=== PATIENT | male | born 1955 | race African-American/Black ===

== ENCOUNTER 2019-04-30 10:11 | Inpatient (IN) | payer OTHER ==
[2019-04-30 10:58] LABS: Hemoglobin 10.5 g/dL (14.0-18.0); Mean Corpuscular HGB CONC 32.5 g/dL (32.0-36.0); White Blood Cell (WBC) Count 16.3 thou/uL (4.8-10.8)
[2019-04-30 11:14] LABS: Anion Gap 16 mmol/L (10-20); BUN (Urea Nitrogen) 16 mg/dL (8.4-25.7); Band 12 % (5-11); Calc. Creatinine Clearance 0 mL/min (70-130); Calcium 8.5 mg/dL (7.8-10.44); Carbon Dioxide 20 mmol/L (23-31); Chloride 104 mmol/L (98-107); Estimated GFR-MDRD 43; Glucose 101 mg/dL (80-115); Lymphocytes 11 % (21-51); MDiff Complete? YES; Mean Platelet Volume 8.9 fL (7.4-10.4); Monocytes 3 % (0-10); Neutrophil 74 % (42-75); Platelet Count 95 thou/uL (130-400); Platelet Morphology Comment Appears Decreased; Potassium 4.3 mmol/L (3.5-5.1); RBC Distribution Width 12.3 % (11.5-14.5); Reflex for Review?? YES; Rouleaux Formation MARKED = >16 cells (100X) (None Seen); Sodium 136 mmol/L (136-145); Vacuoles SLIGHT
[2019-04-30] MEDS ORDERED: Dexamethasone 10 MG/ML VIAL ONE (11:28)
[2019-04-30] MEDS ORDERED: Sulfameth/Trimethoprim DS 800-160mg TAB ONE (11:28)
[2019-04-30] MEDS ORDERED: Acetaminophen 500 MG TAB ONE (11:28)
--- NOTE | 2019-04-30 12:31 | CT ---
CT OF FACIAL BONES WITH IV CONTRAST: 04/30/19 HISTORY: Left periorbital cellulitis. FINDINGS: There is soft tissue swelling in the left periorbital region consistent with cellulitis. No loculated fluid collection is seen in the soft tissues to suggest abscess formation. No adjacent bony destruct ion is seen to suggest osteomyelitis. There is mucosa disease in the paranasal sinuses. No retrobulbar mass or proptosis is seen. IMPRESSION: Left periorbital cellulitis without evidence of osteomyelitis or soft tissue abscess. POS: NICOLE
[2019-04-30] MEDS ORDERED: Piperacillin/Tazobactam 3.375 GM VIAL ONE (12:48)
[2019-04-30] MEDS ORDERED: Acetaminophen 325 MG TAB PO PRN (14:27)
[2019-04-30] MEDS ORDERED: HYDROcodone/Acetaminophen 5/325 mg Tablet PO PRN (14:27)
[2019-04-30] MEDS ORDERED: Bisacodyl 5 MG TAB PO PRN (14:27)
[2019-04-30] MEDS ORDERED: Senokot S 8.6-50 MG TAB PO PRN (14:27)
[2019-04-30] MEDS ORDERED: hydrALAZINE 20 MG/ML VIAL SLOW IVP PRN (14:32)
[2019-04-30] MEDS ORDERED: ISOVUE-370 76%-LOCM 1 ML ONE (15:09)
[2019-04-30 18:12] VITALS: BMI 26.9
[2019-04-30] MEDS: 1/2 NS w/KCL 20 mEq 1,000 ML IV SCH (19:55)
[2019-04-30] MEDS: Piperacillin/Tazobactam 3.375 GM in Sodium Chloride 0.9% 100 ML IVPB SCH (19:58)
[2019-04-30] MEDS: Terazosin HCl 5 MG CAP PO SCH (20:03)
[2019-05-01] MEDS: Piperacillin/Tazobactam 3.375 GM in Sodium Chloride 0.9% 100 ML IVPB SCH ×4 (01:40→20:37)
[2019-05-01 05:45] LABS: #Lymphocytes 1.4 thou/uL (1.20-3.40); #Monocytes 0.5 thou/uL (0.11-0.59); #Neutrophils 14.7 thou/uL (1.40-6.50); %Lymphocytes 8.3 % (21.0-51.0); %Monocytes 3.1 % (0.0-10.0); %Neutrophils 88.5 % (42.0-75.0); Hemoglobin 9.1 g/dL (14.0-18.0); Mean Corpuscular HGB CONC 33.4 g/dL (32.0-36.0); Mean Corpuscular Hemoglobin 34.8 pg (27.0-31.0); Mean Platelet Volume 9.5 fL (7.4-10.4); Platelet Count 71 thou/uL (130-400); RBC Distribution Width 12.3 % (11.5-14.5); White Blood Cell (WBC) Count 16.5 thou/uL (4.8-10.8)
[2019-05-01 06:04] LABS: Anion Gap 13 mmol/L (10-20); BUN (Urea Nitrogen) 26 mg/dL (8.4-25.7); Calc. Creatinine Clearance 59 mL/min (70-130); Carbon Dioxide 20 mmol/L (23-31); Chloride 107 mmol/L (98-107); Estimated GFR-MDRD 57; Glucose 105 mg/dL (80-115); Potassium 4.3 mmol/L (3.5-5.1); Sodium 136 mmol/L (136-145)
[2019-05-01] MEDS: 1/2 NS w/KCL 20 mEq 1,000 ML IV SCH ×2 (07:31→12:34)
--- NOTE | 2019-05-01 08:27 | HP ---
CHIEF COMPLAINT: Left eye pain and swelling. HISTORY OF PRESENT ILLNESS: Mr. Fritz is a 63-year-old male with past medical history of hepatitis C and BPH, who presents with acute onset of left eye pain and swelling. The patient is incarcerated and is accompanied by guards at bedside. The patient states that yesterday evening he started having worsening eye pain and swelling, he states that he did notice some white creamy discharge from the middle part of his eye with discomfort. He did try eyedrops to help flush out the eye. However, this did not help. When the patient woke up this morning, left eye was severely swollen and painful. The patient presented to hospital emergency department for further evaluation. The patient had CT scan of the facial bones , please see full report for details. There is left periorbital cellulitis with no evidence of osteomyelitis or soft tissue abscess. The patient was found to be septic with leukocytosis of 16k and tachycardia. The patient denies any physical altercations and states that he did not have any trauma to the area. The patient denies any new lotions or soaps. The patient denies any other new activity to the left eye that would explain these symptoms. PAST MEDICAL HISTORY: 1. Hepatitis C. 2. BPH. HOME MEDICATIONS: 1. Terazosin 15 mg one tab p.o. q.h.s. 2. Lactulose 20mg 3 times per day. REVIEW OF SYSTEMS: A 10-point review of systems was completed and negative aside from history of present illness. ALLERGIES: NO KNOWN DRUG ALLERGIES. SOCIAL HISTORY: The patient denies tobacco use, no alcohol, no illicit drugs, the patient is single/not . He has seven children. The patient is incarcerated since 2005. The patient states that he desires to be a full categorization status. PHYSICAL EXAMINATION: VITAL SIGNS: Temperature 98.6, heart rate 102, respirations 15, and O2 saturation 98% on room air. GENERAL: The patient is alert and oriented, cooperative with history and physical, in no apparent distress. HEENT: The left eye has obvious swelling to the point where the eye is completely closed, there are erythematous changes of the skin and warmth coming from the skin. There is medial tearing of the eye; however, there is no purulent discharge. Extraocular muscles are intact, and vision to the left eye is intact to threat without deficits in lateral gaze. The patient is able to cover the right eye and independently tell me accurately how many fingers I am holding up with the left eye. There is no vision impairment. The surrounding left periorbital region does not have any obvious breaks in the skin, no boils or abscesses. Throat, there is no inflammatory changes in the throat or exudates. There is poor dentition. The left lower lip has a minor fresh cut. CARDIAC: Regular rate and rhythm, no appreciated murmurs, rubs, or gallops. LUNGS: Lungs are clear to auscultation bilaterally without wheezes, rales, or rhonchi. ABDOMEN: Soft, nontender, nondistended, no guarding, rigidity, or rebound. There are no appreciated masses in the abdomen. Liver is slightly enlarged. MUSCULOSKELETAL: The spine is adequately aligned with good range of motion. EXTREMITIES: There is no significant swelling in any limb. Peripheral pulses intact. NEUROLOGIC: Cranial nerves 2 through 12 are grossly intact. Strength is symmetric, and sensation is intact. SKIN: There are cellulitic changes to the left periorbital region; however, there are no other obvious skin lesions or rashes. PSYCHIATRIC: The patient is alert and oriented x3 with good insight into his clinical condition. The patient is a primary historian, who cooperates well with history. LABORATORY DATA: WBC 16.3, RBC 3.10, hemoglobin 10.5, hematocrit 32.4. MCV 104. Platelets 95. Sodium 136. Potassium 4.3. Chloride 104. Carbon dioxide 20. Anion gap 16. Blood urea nitrogen 16. Creatinine 1.6. Estimated GFR 43. Glucose 101. Calcium 8.5. RADIOGRAPHIC IMAGING: There is a CT scan of the facial bones, please see full report for details. Impression, left periorbital cellulitis without evidence of osteomyelitis or soft tissue abscess. ASSESSMENT: 1. Left eye periorbital cellulitis. 2. Sepsis. 3. Leukocytosis. 4. Tachycardia. 5. Acute kidney injury. 6. Macrocytic anemia. 7. Hepatitis C. 8. BPH. 9. Elevated BMI. PLAN: 1. Admit to medical unit with telemetry. 2. Empiric IV antibiotics with Zosyn. 3. Once sepsis has resolved and the patient is responding to IV antibiotics, we will transition to oral antibiotics, consider ID consultation if patient does not respond to IV antibiotics. 4. IV fluid resuscitation for acute kidney injury. 5. Continue home medications as able. 6. Pain control. 7. GI and DVT prophylaxis. Job ID: [id number] [facility]ENTER[facility]
[2019-05-01] MEDS ORDERED: Enoxaparin Sodium 40 MG/0.4 ML SYRINGE SC SCH (09:00)
--- NOTE | 2019-05-01 12:07 | PDOC.HOSPP ---
- Subjective Subjective: Patient seen and examined. Clinically improving. Left eye improving, now able to see out of eye as swelling has decreased so much. Less cellulolytic changes of the skin. Still with some watery tearing from the eye without kiarra purulent discharge. Patient feeling better. - Objective Vital Signs & Weight: Vital Signs (12 hours) Temp Pulse Resp BP BP Pulse Ox 05/01/19 12:00 98.6 F 74 18 146/75 H 93 L 05/01/19 07:59 98.1 F 99 18 150/72 H 92 L 05/01/19 04:27 98.2 F 93 18 147/80 H 93 L Weight Weight 187 lb 3.2 oz I&O: 04/30/19 05/01/19 05/02/19 06:59 06:59 06:59 Intake Total 1250 Balance 1250 Result Diagrams: 05/01/19 04:40 05/01/19 04:40 Radiology Reviewed by me: Yes (CT orbit) ROS - Medication Medications: Active Medications Generic Name Dose Route Start Last Admin Trade Name Freq PRN Reason Stop Dose Admin Piperacillin Sod/Tazobactam 100 mls @ 200 mls/hr 04/30/19 20:00 05/01/19 08: 26 Sod 3.375 gm/ Sodium Chloride IVPB 100 mls 0200,0800,1400,2000 GAUTAM Administration Potassium Chloride/Sodium Chloride 1,000 mls @ 75 mls/hr 04/30/19 17:30 05/01 07:31 1/2 Ns W/Kcl 20 Meq IV Not Given .[id number] GAUTAM Lactulose 10 gm 04/30/19 21:00 05/01/19 08:25 Lactulose PO 10 gm TID GAUTAM Administration Terazosin HCl 15 mg 04/30/19 21:00 04/30/19 20:03 Hytrin PO 15 mg HS GAUTAM Administration - Exam NAD, awake alert Eye: PERRL, anicteric sclera Eye - other findings: Left eye swelling has improved. Cellulitis improved. Left eye now open.EOMI ENT: moist mucosa Neck: supple, no JVD Heart: RRR, no murmur, no gallops Respiratory: CTAB, no wheezes, no rales, no ronchi Gastrointestinal: soft, non-tender, non-distended, no guarding, no rigidity Extremities: no edema Skin: negative: no rashes Skin - other findings: Cellulitis around the left eye, significantly improved since yesterday Neurological: CN's grossly intact, normal sensation to touch, no weakness, no focal deficits, no new deficit. negative: vision deficit Neurological - other findings: [place] palsy at baseline Musculoskeletal: normal tone, normal strength, no muscle wasting Psychiatric: normal affect, A&O x 3 Hosp A/P (1) Periorbital cellulitis of left eye Code(s): L03.213 - PERIORBITAL CELLULITIS Status: Acute (2) Eye pain Code(s): H57.10 - OCULAR PAIN, UNSPECIFIED EYE Status: Acute (3) Sepsis Code(s): A41.9 - SEPSIS, UNSPECIFIED ORGANISM Status: Acute (4) Leukocytosis Code(s): D72.829 - ELEVATED WHITE BLOOD CELL COUNT, UNSPECIFIED Status: Acute (5) Hepatitis C Code(s): B19.20 - UNSPECIFIED VIRAL HEPATITIS C WITHOUT HEPATIC COMA Status: Chronic (6) Thrombocytopenia Code(s): D69.6 - THROMBOCYTOPENIA, UNSPECIFIED Status: Chronic (7) Anemia Code(s): D64.9 - ANEMIA, UNSPECIFIED Status: Chronic (8) BPH (benign prostatic hyperplasia) Code(s): N40.0 - BENIGN PROSTATIC HYPERPLASIA WITHOUT LOWER URINRY TRACT SYMP Status: Chronic (9) DAVID (acute kidney injury) Code(s): N17.9 - ACUTE KIDNEY FAILURE, UNSPECIFIED Status: Acute (10) CKD (chronic kidney disease) Code(s): N18.9 - CHRONIC KIDNEY DISEASE, UNSPECIFIED Status: Chronic - Plan old records reviewed/req Plan: Continue Zosyn WBC improving Symptomatic therapy for pain, fever, swelling Renal function improving, likely CKD at baseline Chronic anemia, and thrombocytopenia will need continued follow up as outpatient with PCP Hepatitis C will need continued follow up as outpatient with PCP Continue home medications as able GI and DVT PPX
[2019-05-01] MEDS ORDERED: Polyvinyl Alcohol 1.4%/Povidone 0.6% Opth Drops EA EYE PRN (17:09)
[2019-05-01] MEDS: Terazosin HCl 5 MG CAP PO SCH (20:38)
[2019-05-02] MEDS: Piperacillin/Tazobactam 3.375 GM in Sodium Chloride 0.9% 100 ML IVPB SCH ×3 (02:03→14:17)
[2019-05-02 05:24] LABS: Platelet Count 75 thou/uL (130-400); RBC Distribution Width 12.3 % (11.5-14.5)
[2019-05-02] MEDS: 1/2 NS w/KCL 20 mEq 1,000 ML IV SCH ×2 (05:29→09:00)
[2019-05-02 05:33] LABS: #Basophils 0.1 thou/uL (0.0-0.2); #Lymphocytes 0.9 thou/uL (1.20-3.40); #Monocytes 0.8 thou/uL (0.11-0.59); #Neutrophils 11.6 thou/uL (1.40-6.50); %Basophils 0.4 % (0.0-1.0); %Eosinophils 0.1 % (0.0-10.0); %Lymphocytes 6.9 % (21.0-51.0); %Monocytes 5.8 % (0.0-10.0); %Neutrophils 86.8 % (42.0-75.0); Mean Corpuscular HGB CONC 33.4 g/dL (32.0-36.0); Mean Corpuscular Hemoglobin 35.2 pg (27.0-31.0); Mean Platelet Volume 9.3 fL (7.4-10.4); Red Blood Cell (RBC) Count 2.54 mill/uL (4.70-6.10); White Blood Cell (WBC) Count 13.4 thou/uL (4.8-10.8)
[2019-05-02 05:43] LABS: Anion Gap 14 mmol/L (10-20); BUN (Urea Nitrogen) 33 mg/dL (8.4-25.7); Calc. Creatinine Clearance 68 mL/min (70-130); Calcium 8.5 mg/dL (7.8-10.44); Carbon Dioxide 18 mmol/L (23-31); Chloride 108 mmol/L (98-107); Estimated GFR-MDRD 67; Glucose 95 mg/dL (80-115); Potassium 4.2 mmol/L (3.5-5.1); Sodium 136 mmol/L (136-145)
--- NOTE | 2019-05-02 13:39 | PDOC.HOSPP ---
- Subjective Encounter Date: 05/02/19 Encounter Time: 07:40 Subjective: Pt seen for followup re: periorbital cellulitis. Reports upper eyelid swelling. No problem with vision. No fevers. - Objective Vital Signs & Weight: Vital Signs (12 hours) Temp Pulse Resp BP Pulse Ox 05/02/19 08:00 98.4 F 70 18 141/83 H 94 L Weight Weight 187 lb 3.2 oz I&O: 05/01/19 05/02/19 05/03/19 06:59 06:59 06:59 Intake Total 1250 Output Total 450 Balance 1250 -450 Result Diagrams: 05/02/19 04:31 05/02/19 04:31 Additional Labs: Labs and MARs reviewed by me ROS - Review of Systems Eyes: reports: pain, eyelid inflammation. denies: vision change, conjunctivae inflammation, redness Respiratory: denies: cough, dry, shortness of breath, hemoptysis, SOB with excertion, pleuritic pain, sputum, wheezing Cardiovascular: denies: chest pain, palpitations, orthopnea, paroxysmal noc. dyspnea, edema, light headedness Gastrointestinal: denies: nausea, vomitting, abdominal pain, diarrhea, constipation, melena, hematochezia Genitourinary: denies: dysuria, frequency, incontinence, hematuria, retention - Medication Medications: Active Medications Generic Name Dose Route Start Last Admin Trade Name Freq PRN Reason Stop Dose Admin Piperacillin Sod/Tazobactam 100 mls @ 200 mls/hr 04/30/19 20:00 05/02/19 08: 07 Sod 3.375 gm/ Sodium Chloride IVPB 100 mls 0200,0800,1400,2000 GAUTAM Administration Potassium Chloride/Sodium Chloride 1,000 mls @ 75 mls/hr 04/30/19 17:30 05/02 09:00 1/2 Ns W/Kcl 20 Meq IV Not Given .[id number] GAUTAM Lactulose 20 gm 05/01/19 21:00 05/02/19 08:07 Lactulose PO 20 gm TID GAUTAM Administration Terazosin HCl 15 mg 04/30/19 21:00 05/01/19 20:38 Hytrin PO 15 mg HS GAUTAM Administration - Exam NAD Eye: PERRL, anicteric sclera ENT: normocephalic atraumatic, moist mucosa Neck: supple, symmetric, no JVD, no lymphadenopathy Heart: RRR, no rubs Heart - other findings: S1, S2 Respiratory: CTAB, no wheezes, no rales, no ronchi, normal chest expansion Gastrointestinal: soft, non-tender, non-distended, normal bowel sounds Skin: normal turgor Neurological: CN's grossly intact Musculoskeletal: normal strength Psychiatric: normal affect, normal behavior, oriented to person, oriented to place Hosp A/P (1) Periorbital cellulitis of left eye Code(s): L03.213 - PERIORBITAL CELLULITIS Status: Acute (2) BPH (benign prostatic hyperplasia) Code(s): N40.0 - BENIGN PROSTATIC HYPERPLASIA WITHOUT LOWER URINRY TRACT SYMP Status: Chronic (3) CKD (chronic kidney disease) Code(s): N18.9 - CHRONIC KIDNEY DISEASE, UNSPECIFIED Status: Chronic (4) Hepatitis C Code(s): B19.20 - UNSPECIFIED VIRAL HEPATITIS C WITHOUT HEPATIC COMA Status: Chronic (5) DAVID (acute kidney injury) Code(s): N17.9 - ACUTE KIDNEY FAILURE, UNSPECIFIED Status: Resolved Plan: present on admission - Plan continue antibiotics Continue IV Zosyn. Consult ID. BPH stable.
[2019-05-02] MEDS: cefTRIAXone\\ROCEPHIN 1 GM in Sodium Chloride 0.9% 100 ML IVPB SCH (20:13)
[2019-05-02] MEDS: Terazosin HCl 5 MG CAP PO SCH (20:14)
--- NOTE | 2019-05-03 01:59 | CON ---
DATE OF CONSULTATION: 05/02/2019 REASON FOR CONSULTATION: Left periorbital swelling, possible cellulitis. 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 He noticed swelling of the left eye. He usually keeps his eye closed with a tape because of the Fuentes's palsy. There is some associated pain with swelling and some discharge. Due to persistence of symptoms, he was brought to the emergency room. CT is described below. He has been receiving antimicrobials and there has been improvement. Denies headaches. No visual symptoms. No sore throat, odynophagia, or dysphagia. No neck pain. No back pain. No cough or sputum production. No dyspnea. No abdominal pain or diarrhea. Voiding without difficulty, although he sometimes has incontinence and dribbling. MEDICAL HISTORY: Hep C, BPH, Fuentes's palsy about 3 months ago. ALLERGIES: NONE. MEDICATIONS: Medications in the [facility]: 1. Terazosin. 2. Lactulose. SOCIAL HISTORY: Never smoker. No alcoholic beverage use. It is not clear if he was ever treated for hepatitis C. MEDICATION LIST: 1. DuoNeb. 2. Dulcolax. 3. Tums. 4. Apresoline. 5. Lactulose. 6. Zosyn. PHYSICAL EXAMINATION: VITAL SIGNS: T-max 98.4, blood pressure 140/80, pulse 70, respirations 18, O2 saturation 94% to 95%. SKIN: With periorbital swelling which has reduced markedly. He is able to open his eyelids now better. It is hard to evaluate the presence of erythema, but I do not see obvious evidence of erythema. The skin actually looks pretty normal at this time except for mild edema, both in the inferior and upper lids. HEENT: There are no lesions in the earlobes or the pinna. Oral cavity with numerous missing teeth. Nasal passages are patent. The orbit with clear sclerae. No erythema. Conjunctivae are normal. NECK: Supple. No jugular vein distention. LUNGS: Symmetric clear breath sounds. HEART: S1 and S2, regular rate. No S3 or S4. ABDOMEN: Soft, not distended or tender. No ascites. No bladder distention. EXTREMITIES: He is able to move all extremities. His cognitive function appears to be intact. LABORATORY DATA: White cell count 16.3 and now 13.4, hemoglobin 10.5 and 9, platelets 95, 86% neutrophils. Sodium 136, creatinine is down from 1.6 to 1.3. Blood cultures are pending. Facial bone CT with soft tissue swelling, left periorbital region. ASSESSMENT: 1. Chronic hep C with unknown history of treatment. 2. Fuentes's palsy. 3. Periorbital swelling with neutrophilia, pain with improvement after initiation of broad-spectrum antimicrobial therapy. No evidence of abscess formation at this point in time. DISCUSSION: The patient likely has periorbital cellulitis. No evidence of herpes zoster and no evidence of ethmoid involvement, so this is preseptal involvement only. The organisms associated most likely include streptococci and sometimes Staphylococcus aureus but in this case, there is no obvious abscess development. We will switch him to Rocephin and if continues to improve, then transition to oral Keflex for discharge planning. According to the guards, sometimes they will not obtain medication until a few days after the patient is transferred back to the unit, so I would make sure that unit has the medication available before the patient's transfer. Otherwise, he may have a relapse of the inflammatory process. The differential diagnosis would include a vascular process with obstruction for example inferior vena cava syndrome but in that case, one would expect bilateral swelling and intracranial process would be associated with proptosis and conjunctival hyperemia, which he does not have. Another issue is the treatment for hep C, it does not appear that he has been treated and he would need viremia and genotype measurement and then treatment offered. Job ID: [id number] [facility]
[2019-05-03] MEDS: 1/2 NS w/KCL 20 mEq 1,000 ML IV SCH ×2 (02:22→12:31)
[2019-05-03 05:17] LABS: #Eosinphils 0.1 thou/uL (0.0-0.7); #Lymphocytes 1.4 thou/uL (1.20-3.40); #Monocytes 0.5 thou/uL (0.11-0.59); #Neutrophils 5.3 thou/uL (1.40-6.50); %Basophils 0.1 % (0.0-1.0); %Eosinophils 0.9 % (0.0-10.0); %Lymphocytes 19.4 % (21.0-51.0); %Monocytes 7.1 % (0.0-10.0); %Neutrophils 72.6 % (42.0-75.0); Hemoglobin 9.2 g/dL (14.0-18.0); Mean Corpuscular HGB CONC 32.2 g/dL (32.0-36.0); Mean Corpuscular Hemoglobin 33.7 pg (27.0-31.0); Mean Platelet Volume 8.9 fL (7.4-10.4); Platelet Count 79 thou/uL (130-400); RBC Distribution Width 12.1 % (11.5-14.5); Red Blood Cell (RBC) Count 2.71 mill/uL (4.70-6.10); White Blood Cell (WBC) Count 7.3 thou/uL (4.8-10.8)
[2019-05-03 05:32] LABS: Anion Gap 13 mmol/L (10-20); BUN (Urea Nitrogen) 27 mg/dL (8.4-25.7); Calc. Creatinine Clearance 84 mL/min (70-130); Calcium 8.3 mg/dL (7.8-10.44); Carbon Dioxide 17 mmol/L (23-31); Chloride 110 mmol/L (98-107); Estimated GFR-MDRD 86; Glucose 83 mg/dL (80-115); Sodium 136 mmol/L (136-145)
[2019-05-03] MEDS: Calcium Carbonate 500 MG ChewTAB PO PRN ×2 (08:25→20:26)
--- NOTE | 2019-05-03 14:03 | PDOC.HOSPP ---
- Subjective Encounter Date: 05/03/19 Encounter Time: 07:20 Subjective: Pt seen for followup re: periorbital cellulitis. Able to open his left eye more. No vision problems. - Objective Vital Signs & Weight: Vital Signs (12 hours) Temp Pulse Resp BP Pulse Ox 05/03/19 07:14 97.9 F 85 18 145/82 H 96 Weight Weight 187 lb 3.2 oz I&O: 05/02/19 05/03/19 05/04/19 06:59 06:59 06:59 Output Total 450 Balance -450 Result Diagrams: 05/03/19 04:58 05/03/19 04:58 Additional Labs: Labs and MARs reviewed by me ROS - Review of Systems Cardiovascular: denies: chest pain, palpitations, orthopnea, paroxysmal noc. dyspnea, edema, light headedness Gastrointestinal: denies: nausea, vomitting, abdominal pain, diarrhea, constipation, melena, hematochezia - Medication Medications: Active Medications Generic Name Dose Route Start Last Admin Trade Name Freq PRN Reason Stop Dose Admin Calcium Carbonate 1,000 mg 04/30/19 14:27 05/03/19 08:25 Tums PO 1,000 mg Q4H PRN Administration Heartburn or Indigestion Hydralazine HCl 10 mg 04/30/19 14:32 05/02/19 22:51 Apresoline SLOW IVP 10 mg Q4H PRN Administration SBP >160 Potassium Chloride/Sodium Chloride 1,000 mls @ 75 mls/hr 04/30/19 17:30 05/03 12:31 1/2 Ns W/Kcl 20 Meq IV Not Given .[id number] GAUTAM Ceftriaxone Sodium 1 gm/ 100 mls @ 200 mls/hr 05/02/19 20:00 05/02/19 20:13 Sodium Chloride IVPB 100 mls Q24HR GAUTAM Administration Lactulose 20 gm 05/01/19 21:00 05/03/19 08:19 Lactulose PO 20 gm TID GAUTAM Administration Terazosin HCl 15 mg 04/30/19 21:00 05/02/19 20:14 Hytrin PO 15 mg HS GAUTAM Administration - Exam NAD Eye: anicteric sclera Eye - other findings: L upper eyelid swelling improved ENT: no oropharyngeal lesions Neck: supple Heart: RRR Respiratory: CTAB Gastrointestinal: soft, non-tender Neurological: CN's grossly intact Psychiatric: normal affect, normal behavior Hosp A/P (1) Periorbital cellulitis of left eye Code(s): L03.213 - PERIORBITAL CELLULITIS Status: Acute (2) BPH (benign prostatic hyperplasia) Code(s): N40.0 - BENIGN PROSTATIC HYPERPLASIA WITHOUT LOWER URINRY TRACT SYMP Status: Chronic (3) CKD (chronic kidney disease) Code(s): N18.9 - CHRONIC KIDNEY DISEASE, UNSPECIFIED Status: Chronic (4) Hepatitis C Code(s): B19.20 - UNSPECIFIED VIRAL HEPATITIS C WITHOUT HEPATIC COMA Status: Chronic (5) DAVID (acute kidney injury) Code(s): N17.9 - ACUTE KIDNEY FAILURE, UNSPECIFIED Status: Resolved - Plan continue antibiotics Antibiotics switched to IV ceftriaxone. Appreciate ID service input. BPH stable. Hep C: nil acute.
[2019-05-03] MEDS: cefTRIAXone\\ROCEPHIN 1 GM in Sodium Chloride 0.9% 100 ML IVPB SCH (20:20)
[2019-05-03] MEDS: Terazosin HCl 5 MG CAP PO SCH (20:20)
[2019-05-04] MEDS: 1/2 NS w/KCL 20 mEq 1,000 ML IV SCH ×2 (04:18→08:52)
[2019-05-04 05:57] LABS: #Eosinphils 0.2 thou/uL (0.0-0.7); #Lymphocytes 1.3 thou/uL (1.20-3.40); #Monocytes 0.6 thou/uL (0.11-0.59); #Neutrophils 3.3 thou/uL (1.40-6.50); %Basophils 0.3 % (0.0-1.0); %Eosinophils 2.9 % (0.0-10.0); %Lymphocytes 24.8 % (21.0-51.0); %Monocytes 10.6 % (0.0-10.0); %Neutrophils 61.4 % (42.0-75.0); Hemoglobin 9.4 g/dL (14.0-18.0); Mean Corpuscular HGB CONC 32.4 g/dL (32.0-36.0); Mean Corpuscular Hemoglobin 33.6 pg (27.0-31.0); Mean Platelet Volume 8.9 fL (7.4-10.4); Platelet Count 84 thou/uL (130-400); RBC Distribution Width 12.1 % (11.5-14.5); Red Blood Cell (RBC) Count 2.79 mill/uL (4.70-6.10); White Blood Cell (WBC) Count 5.4 thou/uL (4.8-10.8)
[2019-05-04 06:15] LABS: Anion Gap 14 mmol/L (10-20); BUN (Urea Nitrogen) 26 mg/dL (8.4-25.7); Calc. Creatinine Clearance 94 mL/min (70-130); Calcium 8.5 mg/dL (7.8-10.44); Carbon Dioxide 17 mmol/L (23-31); Chloride 110 mmol/L (98-107); Estimated GFR-MDRD Greater than 90; Glucose 79 mg/dL (80-115); Potassium 4.3 mmol/L (3.5-5.1); Sodium 137 mmol/L (136-145)
[2019-05-04 07:12] VITALS: TEMP 98.6
[2019-05-04 11:22] VITALS: BP 172/88
[2019-05-04] MEDS ORDERED: Cephalexin 250 MG CAP PO SCH (12:00)
--- NOTE | 2019-05-05 00:45 | DIS ---
DATE OF ADMISSION: 04/30/2019 DATE OF DISCHARGE: 05/04/2019 PRIMARY CARE PROVIDER: Unknown. DISCHARGE DIAGNOSES: 1. Periorbital cellulitis. 2. Acute kidney injury. CONDITION OF PATIENT ON THE DAY OF DISCHARGE: Stable. I assessed, Mr. Fritz on the day of discharge. He denies any chest pain or shortness of breath. Vital signs are stable. Left orbital cellulitis has improved. There is no vision defect. S1 and S2 are heard, regular. Lungs are clear to auscultation bilaterally. DISCHARGE MEDICATIONS: Keflex 500 mg 4 times a day for 10 more days, lactulose 20 g 3 times a day, and terazosin 15 mg at bedtime. CONSULTATIONS DURING THIS HOSPITALIZATION: Infectious Diseases, Dr. Dean. HOSPITAL COURSE: Mr. Fritz is a pleasant 63-year-old gentleman, who was admitted to [facility] on 04/30/2019, for left periorbital cellulitis. Please refer to Dr. Torres's history and physical note dated 04/30/2019, for further details. He was treated with intravenous antibiotics. He was seen by Infectious Diseases Service. His periorbital cellulitis improved, and he is being [facility] back to [facility]. He also had acute kidney injury at the time of admission, which resolved. On the day of discharge, he has sodium 137, potassium 4.3, creatinine 0.94, white count 5400, hemoglobin 9.4, and platelet count 84,000. He is advised to follow up with his primary care provider for management of hepatitis C. FOLLOWUP APPOINTMENTS: The patient is advised to follow up with primary care provider. DISCHARGE DESTINATION: [facility], from where the patient was admitted to the hospital. TIME SPENT: Total amount of time spent coordinating this discharge: 33 minutes. Job ID: [id number]
== END 2019-05-04 14:12 | DRG 872 ==
LOC: ERS 10:11 → ERHOLD 14:18 → T4-A 14:36
PROVIDERS: ADMIT Family Medicine; ATTEND Family Medicine
DX: A41.9 Sepsis, unspecified organism (principal); L03.213 Periorbital cellulitis; N17.9 Acute kidney failure, unspecified; N40.0 Benign prostatic hyperplasia without lower urinary tract symptoms; D53.9 Nutritional anemia, unspecified; D69.6 Thrombocytopenia, unspecified; N18.9 Chronic kidney disease, unspecified; B18.2 Chronic viral hepatitis C; Z79.899 Other long term (current) drug therapy; G51.0 Bell's palsy
CPT/HCPCS: 36415; 70487; 80048; 85025; 85060; 96361; 96365; 96375; J0360; J0696; J1100; J2543; J3480; J3490; Q9966

== ENCOUNTER 2019-05-30 14:15 | Emergency (ER) | payer OTHER ==
[2019-05-30 15:14] LABS: #Monocytes 0.3 thou/uL (0.11-0.59); #Neutrophils 2.2 thou/uL (1.40-6.50); %Basophils 0.3 % (0.0-1.0); %Eosinophils 0.5 % (0.0-10.0); %Lymphocytes 27.5 % (21.0-51.0); %Monocytes 9.1 % (0.0-10.0); %Neutrophils 62.6 % (42.0-75.0); Hemoglobin 8.5 g/dL (14.0-18.0); Mean Corpuscular HGB CONC 33.4 g/dL (32.0-36.0); Mean Corpuscular Hemoglobin 34.7 pg (27.0-31.0); Mean Platelet Volume 9.4 fL (7.4-10.4); Platelet Count 73 thou/uL (130-400); RBC Distribution Width 13.2 % (11.5-14.5); Red Blood Cell (RBC) Count 2.43 mill/uL (4.70-6.10); White Blood Cell (WBC) Count 3.5 thou/uL (4.8-10.8)
--- NOTE | 2019-05-30 15:21 | RAD ---
1 VIEW CHEST: Date: 05/30/19 HISTORY: Dizziness. Presyncope. COMPARISON: None. FINDINGS: Normal cardiac silhouette. Lungs and pleural spaces are clear. No pneumothorax or osseous abnormaliti es. IMPRESSION: No acute cardiopulmonary process. POS: TPC
[2019-05-30 15:25] LABS: ALT (SGPT) 43 U/L (8-55); AST (SGOT) 62 U/L (5-34); Albumin 1.8 g/dL (3.4-4.8); Alkaline Phosphatase 64 U/L (40-150); Anion Gap 17 mmol/L (10-20); BUN (Urea Nitrogen) 22 mg/dL (8.4-25.7); Bilirubin, Total 0.5 mg/dL (0.2-1.2); Calc. Creatinine Clearance 0 mL/min (70-130); Calcium 8.2 mg/dL (7.8-10.44); Carbon Dioxide 18 mmol/L (23-31); Chloride 110 mmol/L (98-107); Estimated GFR-MDRD 44; Globulin 6.5 g/dL (2.4-3.5); Glucose 108 mg/dL (80-115); Potassium 3.7 mmol/L (3.5-5.1); Protein, Total 8.3 g/dL (5.8-8.1); Sodium 141 mmol/L (136-145)
--- NOTE | 2019-06-01 13:39 | EKG ---
Test Reason : Blood Pressure : / mmHG Vent. Rate : 075 BPM Atrial Rate : 075 BPM P-R Int : 130 ms QRS Dur : 074 ms QT Int : 416 ms P-R-T Axes : 043 057 125 degrees QTc Int : 464 ms Normal sinus rhythm Left ventricular hypertrophy with repolarization abnormality Abnormal ECG Confirmed by KAUSHIK LONGORIA D.O. ([id number]), acquisitions editor VITOR MORA ([id number]) on 06/01/2019 1:38:57 PM Referred By: Confirmed By:KAUSHIK LONGORIA D.O.
== END 2019-05-30 16:53 | disposition home or self-care (01) ==
LOC: ERS 14:15 → EEVIPCON 14:15 → ERS 16:53
DX: E86.0 Dehydration (principal)
CPT/HCPCS: 36415; 71045; 80053; 82140; 83880; 85025; 93005; 96360; 96361